=== PATIENT | female | born 1945 | race African-American/Black ===

== ENCOUNTER 2021-03-14 19:26 | Emergency (ER) | payer MEDICARE, MEDICAID ==
[~2021-03-14] VITALS: Ht 175.3 cm; Wt 64.0 kg
[~2021-03-14 19:26] MED LIST: AMLO10TA80 PO; BISA10SU97 PR; BRIM15DR2 OP; COR6 PO; DOCU-138 PO; HYDR-523 PO; HYDR100T26 PO; ISOS10TA2 PO; MULT1TAB11 PO; RANI-655 PO; TIMO10DR30 OP; TOPUD PO
[2021-03-14] MEDS ORDERED: PANTOPRAZOLE SODIUM 40 MG/VIAL IV STA (21:32)
[2021-03-14] MEDS ORDERED: SODIUM CHLORIDE 0.9% 1,000 ML IV ONE (21:45)
[2021-03-14 23:06] LABS: EOSINOPHILS % 6.7 % (0.0-5.0); HEMATOCRIT. 32.1 % (36.0-48.0); HEMOGLOBIN. 11.1 g/dL (12.0-16.0); LYMPHOCYTES % 36.2 % (20.0-50.0); MEAN CORPUSCULAR VOLUME 89.6 fL (81.0-99.0); MEAN PLATELET VOLUME 8.9 fl (7.4-10.4); MONOCYTES % 9.6 % (2.0-8.0); NEUTROPHILS % 46.5 % (40.0-76.0); PLATELET 289 x1000/uL (130-400); RED BLOOD CELL COUNT 3.58 mill/uL (4.2-5.4); RED CELL DISTRIBUTION WIDTH 14.1 % (11.6-14.6)
[2021-03-14 23:13] LABS: CHLORIDE 104 mEq/L (98-107)
[2021-03-14 23:16] LABS: PARTIAL THROMBOPLASTIN TIME 30.3 sec (23.4-31.0)
[2021-03-15 03:51] VITALS: BP 129/74
== END 2021-03-15 03:56 ==
LOC: ER 19:26
DX: K92.1 Melena (principal); D64.9 Anemia, unspecified; J44.9 Chronic obstructive pulmonary disease, unspecified; I10 Essential (primary) hypertension; Z79.899 Other long term (current) drug therapy
CPT/HCPCS: 36415; 80053; 83605; 83690; 85025; 85610; 85730; 86850; 86900; 86901; 96361; 96374; 99285; C9113; J7030

== ENCOUNTER 2021-08-26 12:24 | Inpatient (IN) | payer MEDICARE, MEDICAID ==
[~2021-08-26] VITALS: Ht 162.6 cm; Wt 70.3 kg
[2021-08-26] MEDS ORDERED: SODIUM CHLORIDE 0.9% 1,000 ML IV ONE (14:00)
[2021-08-26 15:33] LABS: BASOPHILS % 0.7 % (0.0-2.0); EOSINOPHILS % 0.7 % (0.0-5.0); HEMATOCRIT. 37.6 % (36.0-48.0); HEMOGLOBIN. 12.3 g/dL (12.0-16.0); LYMPHOCYTES % 12.8 % (20.0-50.0); MEAN CORPUSCULAR VOLUME 91.3 fL (81.0-99.0); MEAN PLATELET VOLUME 9.8 fl (7.4-10.4); MONOCYTES % 6.7 % (2.0-8.0); NEUTROPHILS % 79.1 % (40.0-76.0); PLATELET 267 x1000/uL (130-400); RED BLOOD CELL COUNT 4.11 mill/uL (4.2-5.4); RED CELL DISTRIBUTION WIDTH 13.7 % (11.6-14.6)
[2021-08-26 15:37] LABS: CHLORIDE 113 mEq/L (98-107)
[2021-08-26] MEDS ORDERED: DEXT 5% WATER 500 ML IV ONE (16:30)
[2021-08-26] MEDS ORDERED: DIPHENHYDRAMINE 50MG/ML VIAL IV PRN (19:00)
[2021-08-26] MEDS ORDERED: ONDANSETRON HCL 4MG/2ML INJ IV PRN (19:00)
[2021-08-26] MEDS ORDERED: ACETAMINOPHEN 650MG/20.3ML UDC GT PRN ×2 (19:00)
[2021-08-26] MEDS: DEXT 5%/0.2% NACL 1,000 ML IV SCH (20:00)
[2021-08-26 22:10] VITALS: BP 153/71
[2021-08-27] VITALS (7 sets, daily range): BP systolic 111–165; BP diastolic 54–85
[2021-08-27 06:58] LABS: PROTHROMBIN TIME 10.9 sec (9.6-11.0)
[2021-08-27 07:16] LABS: CHLORIDE 111 mEq/L (98-107)
[2021-08-27] MEDS: DEXT 5%/0.2% NACL 1,000 ML IV SCH ×2 (08:20→21:40)
[2021-08-27] MEDS: CLONIDINE 0.1MG TABLET PO PRN (20:57)
[2021-08-28] VITALS: BP 123/50
[2021-08-28 04:00] VITALS: BP 145/67
[2021-08-28 08:00] VITALS: BP 140/73
[2021-08-28 12:00] VITALS: BP 152/83
[2021-08-28] MEDS: DEXT 5%/0.2% NACL 1,000 ML IV SCH (13:26)
[2021-08-28 16:00] VITALS: BP 148/72
[2021-08-28 20:00] VITALS: BP 120/70
[2021-08-28] MEDS: CLONIDINE 0.1MG TABLET PO PRN (23:39)
[2021-08-29] VITALS: BP 163/74
[2021-08-29 04:00] VITALS: BP 146/68
[2021-08-29 08:00] VITALS: BP 154/54
[2021-08-29 12:00] VITALS: BP 136/61
[2021-08-29 16:00] VITALS: BP 139/54
[2021-08-29 20:00] VITALS: BP 135/57
[2021-08-30] VITALS: BP 107/58
[2021-08-30 04:00] VITALS: BP 163/58
[2021-08-30] MEDS: CLONIDINE 0.1MG TABLET PO PRN (04:35)
[2021-08-30 08:00] VITALS: BP 132/61
[2021-08-30 12:00] VITALS: BP 121/49
[2021-08-30] MEDS ORDERED: LIDOCAINE HCL/EPINEPHRINE 1%-EPI 1:100,000 20 ML VIAL ONE (13:13)
[2021-08-30 15:17] VITALS: BP 121/49
[2021-08-30 16:00] VITALS: BP 144/63
== END 2021-08-30 19:50 | DRG 640 ==
LOC: ER 12:42 → 6EST 16:21 → ENRESERV 21:03 → 7WST 08-29 20:25
PROVIDERS: ADMIT Internal Medicine; ATTEND Internal Medicine
PROC: 0H9U3ZX Drainage of Left Breast, Percutaneous Approach, Diagnostic (ICD-10-PCS; principal; 2021-08-30)
DX: E87.0 Hyperosmolality and hypernatremia (principal); E43 Unspecified severe protein-calorie malnutrition; G93.41 Metabolic encephalopathy; N17.9 Acute kidney failure, unspecified; I69.354 Hemiplegia and hemiparesis following cerebral infarction affecting left non-dominant side; E86.0 Dehydration; J44.9 Chronic obstructive pulmonary disease, unspecified; R13.10 Dysphagia, unspecified; N63.20 Unspecified lump in the left breast, unspecified quadrant; F17.200 Nicotine dependence, unspecified, uncomplicated; M19.90 Unspecified osteoarthritis, unspecified site; Z20.822 Contact with and (suspected) exposure to COVID-19; I10 Essential (primary) hypertension; Z93.1 Gastrostomy status; Z88.0 Allergy status to penicillin; Z79.899 Other long term (current) drug therapy; Z68.26 Body mass index [BMI] 26.0-26.9, adult
CPT/HCPCS: 19083; 36415; 71045; 76641; 80048; 80053; 82962; 83605; 83880; 84484; 85025; 87426; 88304; 99285; J3490; J7030; J7060; U0003; U0005